=== PATIENT | male | born 1985 | race Caucasian/White ===

== ENCOUNTER 2017-06-05 10:26 | Emergency (ER) | payer BC ==
--- NOTE | 2017-06-05 10:50 | ER Document Report ---
ED Medical Screen (RME) - General Chief Complaint: Chest Pain Stated Complaint: CHEST PAIN Time Seen by Provider: 06/05/17 10:49 Notes: Patient reports 3 days of constant chest tightness. He states that he has also had palpitations at night and his hands feel "numb and tingly". He denies any shortness of breath or nausea. He denies any significant past medical history or previous surgeries. No family history. He does not smoke. He denies any significant use of energy drinks or supplements. TRAVEL OUTSIDE OF THE [place] IN LAST 30 DAYS: No - Related Data Allergies/Adverse Reactions: carbinoxamine [From [facility]] Allergy (Verified 06/05/17 10:39) pseudoephedrine [From [facility]] Allergy (Verified 06/05/17 10:39) Past Medical History - Social History Frequency of alcohol use: Rare Drug Abuse: None Renal/ Medical History: Denies: Hx Peritoneal Dialysis Physical Exam - Vital signs Vitals: Temp Pulse Resp BP Pulse Ox 98.0 F 93 18 146/87 H 98 06/05/17 10:37 06/05/17 10:37 06/05/17 10:37 06/05/17 10:37 06/05/17 10:37 Course - Vital Signs Vital signs: Temp Pulse Resp BP Pulse Ox 98.0 F 93 18 146/87 H 98 06/05/17 10:37 06/05/17 10:37 06/05/17 10:37 06/05/17 10:37 06/05/17 10:37
[2017-06-05 11:08] LABS: ABSOLUTE LYMPHOCYTES (AUTO) 1.5 10^3/uL (0.5-4.7); ABSOLUTE MONOCYTES (AUTO) 0.6 10^3/uL (0.1-1.4); ABSOLUTE NEUT (AUTO) 9.2 10^3/uL (1.7-8.2); BASOPHILS % (AUTO) 0.3 % (0-2); EOSINOPHILS % (AUTO) 0.3 % (0-6); HEMATOCRIT 48.8 % (37.9-51.0); HEMOGLOBIN 16.6 g/dL (13.5-17.0); LYMPHOCYTES % (AUTO) 13.2 % (13-45); MEAN CORPUSCULAR HEMOGLOBIN 29.7 pg (27.0-33.4); MEAN CORPUSCULAR VOLUME 87 fl (80-97); MONOCYTES % (AUTO) 5.5 % (3-13); PLATELET COUNT 274 10^3/uL (150-450); RED BLOOD COUNT 5.59 10^6/uL (4.35-5.55); RED CELL DISTRIBUTION WIDTH 13.6 % (11.5-14.0); SEGMENTED NEUTROPHILS % (AUTO) 80.7 % (42-78); TOTAL CELLS COUNTED % (AUTO) 100 %; WHITE BLOOD COUNT 11.4 10^3/uL (4.0-10.5)
[2017-06-05 11:28] LABS: ALANINE AMINOTRANSFERASE 53 U/L (21-72); ALBUMIN 4.7 g/dL (3.5-5.0); ALKALINE PHOSPHATASE 61 U/L (38-126); ANION GAP 9 (5-19); ASPARTATE AMINO TRANSFERASE 31 U/L (17-59); BILIRUBIN,DIRECT 0.2 mg/dL (0.0-0.4); BILIRUBIN,TOTAL 1.1 mg/dL (0.2-1.3); BLOOD UREA NITROGEN 12 mg/dL (7-20); CALCIUM 10.4 mg/dL (8.4-10.2); CARBON DIOXIDE 31 mmol/L (22-30); CHLORIDE 101 mmol/L (98-107); GLUCOSE 94 mg/dL (75-110); POTASSIUM 4.6 mmol/L (3.6-5.0); SODIUM 140.8 mmol/L (137-145); TOTAL PROTEIN 7.3 g/dL (6.3-8.2)
--- NOTE | 2017-06-05 11:57 | ER Document Report ---
ED Cardiac - General Chief Complaint: Chest Pain Stated Complaint: CHEST PAIN Time Seen by Provider: 06/05/17 10:49 Mode of Arrival: Ambulatory Information source: Patient TRAVEL OUTSIDE OF THE [place] IN LAST 30 DAYS: No - HPI Patient complains to provider of: Palpitations Was the onset of pain: Gradual Is the pain a: New problem Quality of pain: Tightness, Tingling Chest pain radiation location: Left arm Severity now: Mild Severity at worst: Moderate Positive cardiac history: No Associated symptoms: Palpitations Exacerbated by: Denies Relieved by: Nothing Similar symptoms previously: No Recently seen / treated by doctor: No Notes: Patient is a 31-year-old healthy male who presents to the emergency room today complaining of palpitations with sensation of heart racing since yesterday evening, and tingling sensation in his left fingertip, he reports a cough this morning which is nonproductive, denies any shortness of breath, reports some warm and cold chills at times, patient reports he is going through several life changes at this point in time, including changing careers, moving, his currently lives in [place] and he frequently travels back and forth to visit her there, he denies any stimulant use, no energy drinks, no increased feeding consumption, symptoms started sometime Monday, they seem to be worse in the evening hours when he feels palpitations and the heart racing sensation the most , he did go for run this morning and did not experience any chest pain or shortness of breath, patient denies any leg pain or calf tenderness - Related Data Allergies/Adverse Reactions: carbinoxamine [From [facility]] Allergy (Verified 06/05/17 10:39) pseudoephedrine [From [facility]] Allergy (Verified 06/05/17 10:39) Past Medical History - General Information source: Patient - Social History Smoking Status: Former Smoker Frequency of alcohol use: Rare Drug Abuse: None Family History: Reviewed & Not Pertinent Patient has suicidal ideation: No Patient has homicidal ideation: No Renal/ Medical History: Denies: Hx Peritoneal Dialysis Review of Systems - Review of Systems Constitutional: No symptoms reported EENT: No symptoms reported Cardiovascular: See HPI Respiratory: No symptoms reported Gastrointestinal: No symptoms reported Genitourinary: No symptoms reported Male Genitourinary: No symptoms reported Musculoskeletal: No symptoms reported Skin: No symptoms reported Hematologic/Lymphatic: No symptoms reported Neurological/Psychological: No symptoms reported -: Yes All other systems reviewed and negative Physical Exam - Vital signs Vitals: Temp Pulse Resp BP Pulse Ox 98.0 F 93 18 146/87 H 98 06/05/17 10:37 06/05/17 10:37 06/05/17 10:37 06/05/17 10:37 06/05/17 10:37 Interpretation: Normal - General General appearance: Appears well, Alert - HEENT Head: Normocephalic, Atraumatic Eyes: Normal Pupils: PERRL - Respiratory Respiratory status: No respiratory distress Chest status: Nontender Breath sounds: Normal Chest palpation: Normal - Cardiovascular Rhythm: Regular Heart sounds: Normal auscultation Murmur: No - Abdominal Inspection: Normal Distension: No distension Bowel sounds: Normal Tenderness: Nontender Organomegaly: No organomegaly - Back Back: Normal, Nontender - Extremities General upper extremity: Normal inspection, Nontender, Normal color, Normal ROM , Normal temperature General lower extremity: Normal inspection, Nontender, Normal color, Normal ROM , Normal temperature, Normal weight bearing. No: Lorelei's sign Calf: No: Tender - Neurological Neuro grossly intact: Yes Cognition: Normal Orientation: AAOx4 Litzy Coma Scale Eye Opening: Spontaneous Litzy Coma Scale Verbal: Oriented Only Coma Scale Motor: Obeys Commands Litzy Coma Scale Total: 15 Speech: Normal Motor strength normal: LUE, RUE, LLE, RLE Sensory: Normal - Psychological Associated symptoms: Normal affect, Normal mood - Skin Skin Temperature: Warm Skin Moisture: Dry Skin Color: Normal Course - Re-evaluation Re-evalutation: 06/05/17 12:34 Lab and imaging findings discussed with patient at bedside which are relatively unremarkable, patient has no risk factors for heart disease except smoking, which he recently quit, d-dimer is negative, patient does report multiple increased stressors recently with a career change and a move, with his still residing in [place], symptoms likely related to stress and anxiety, therefore patient discharged with instructions for follow-up and advised to return if any worsening of symptoms or additional concerns, patient acknowledges understanding and agreement with this plan - Vital Signs Vital signs: Temp Pulse Resp BP Pulse Ox 98.0 F 93 13 146/87 H 98 06/05/17 10:37 06/05/17 10:37 06/05/17 11:34 06/05/17 10:37 06/05/17 11:34 - Laboratory Result Diagrams: 06/05/17 10:55 06/05/17 10:55 Laboratory results interpreted by me: 06/05/17 06/05/17 10:55 10:55 WBC 11.4 H RBC 5.59 H Seg Neutrophils % 80.7 H Absolute Neutrophils 9.2 H Carbon Dioxide 31 H Calcium 10.4 H - Diagnostic Test Radiology reviewed: Image reviewed, Reports reviewed - EKG Interpretation by Me EKG shows normal: Sinus rhythm Rate: Normal Rhythm: NSR Discharge - Discharge Clinical Impression: Palpitations Condition: Stable Disposition: HOME, SELF-CARE Instructions: Palpitations (Irregular or Rapid Heartrate) ([facility]) Additional Instructions: Follow up with your primary care provider in one to 2 days. Return to the emergency room immediately if symptoms worsen or any additional concerns.
--- NOTE | 2017-06-05 12:15 | RADIOLOGY REPORT (SQ) ---
EXAM DESCRIPTION: CHEST 2 VIEWS COMPLETED DATE/TIME: 06/05/2017 12:07 pm REASON FOR STUDY: palpitations COMPARISON: None. EXAM PARAMETERS: NUMBER OF VIEWS: two views TECHNIQUE: Digital Frontal and Lateral radiographic views of the chest acquired. RADIATION DOSE: NA LIMITATIONS: none FINDINGS: LUNGS AND PLEURA: No opacities, masses or pneumothorax. No pleural effusion. MEDIASTINUM AND HILAR STRUCTURES: No masses or contour abnormalities. HEART AND VASCULAR STRUCTURES: Heart normal size. No evidence for failure. BONES: No acute findings. HARDWARE: None in the chest. OTHER: No other significant finding. IMPRESSION: NO ACUTE RADIOGRAPHIC FINDING IN THE CHEST. TECHNICAL DOCUMENTATION: JOB ID: [id number] [employer]- All Rights Reserved Reading location - IP/workstation name: [facility]
[2017-06-05 12:51] VITALS: BP 115/82
--- NOTE | 2017-06-05 13:33 | EKG REPORT ---
SEVERITY:- NORMAL ECG - SINUS RHYTHM : Confirmed by: Gil Andrade MD 05-Jun-2017 13:32:46
== END 2017-06-05 12:47 | disposition home or self-care (01) ==
LOC: ER 10:26
DX: R00.2 Palpitations (principal); R07.89 Other chest pain; R20.2 Paresthesia of skin; R05 Cough; R68.83 Chills (without fever); Z88.8 Allergy status to other drugs, medicaments and biological substances; Z87.891 Personal history of nicotine dependence
CPT/HCPCS: 36415; 71046; 80053; 84484; 85025; 85379; 93005; 93010; 99285